=== PATIENT | male | born 1970 | race Caucasian/White ===

== ENCOUNTER → 2017-07-20 | Outpatient (CLI) | payer BC ==
[~2017-07-20] MED LIST: CETITAB27 PO; NAPR-1169 PO; SIMV40TA4 PO
[2017-07-20 18:53] LABS: BASO % 0.3 %; BASO ABS # 0.03 K/uL (0-0.2); COMPLETE YES; EOS % 3.1 %; IG% 0.4 %; LYMPH % 23.3 %; LYMPH ABS # 2.64 K/uL (1.2-3.4); MEAN CELL VOLUME 90.7 fL (80-100); MEAN CORPUSCULAR HEMOGLOBIN 31.3 pg (25-34); MEAN CORPUSCULAR HGB CONC 34.5 g/dl (32-36); MEAN PLATELET VOLUME 10.1 fL (7.4-10.4); MONO % 7.7 %; NEUT % 65.2 %; PLATELET COUNT 262 K/uL (130-400); RED BLOOD COUNT 4.63 M/uL (4.7-6.1); WHITE BLOOD COUNT 11.32 K/uL (4.8-10.8)
[2017-07-20 20:21] LABS: LYME DISEASE AB IGG NEG (NEG); LYME DISEASE AB IGM NEG (NEG)
[2017-07-25 20:21] LABS: ANTI-68 kd Ag (HSP-70 Ab) NEGATIVE (NEGATIVE)
== END | disposition home or self-care (01) ==
LOC: C.LAB 16:32
PROVIDERS: ATTEND Physician Assistant
DX: H91.21 Sudden idiopathic hearing loss, right ear (principal)

== ENCOUNTER → 2017-07-24 | Outpatient (CLI) | payer BC ==
[~2017-07-24] MED LIST changes: +GADAVIST IV PRN
--- NOTE | 2017-07-24 09:32 | DIAGNOSTIC IMAGING REPORT ---
BRAIN COMBO FOR IAC CLINICAL HISTORY: *IACS* SUDDEN HEARING LOSS RT EAR hearing loss TECHNIQUE: Multiaxial MRI acquisition COMPARISON STUDY: None FINDINGS: Mild mucosal thickening of the ethmoid sinuses. Signal characteristics the cerebellar as well as cerebral hemispheres are unremarkable. Sella and parasellar regions are unremarkable. Internal artery canals are symmetric. No evidence for abnormal postcontrast enhancement. IMPRESSION: Normal study. Incidental note is made of mild mucosal thickening of the ethmoid sinuses. The above report was generated using voice recognition software. It may contain grammatical, syntax or spelling errors. Electronically signed by: Audie Main M.D. 07/24/2017 9:31 AM Dictated Date/Time: 07/24/2017 9:26 AM
== END | disposition home or self-care (01) ==
LOC: C.MRIBC 08:14
PROVIDERS: ATTEND Physician Assistant
DX: H91.21 Sudden idiopathic hearing loss, right ear (principal); J34.9 Unspecified disorder of nose and nasal sinuses